=== PATIENT | female | born 1985 | race Caucasian/White ===

== ENCOUNTER 2021-05-08 23:35 | Emergency (ER) | payer SELFPAY ==
[2021-05-09 01:52] LABS: BASOPHILS # (AUTO) 0.1 10^3/uL (0.0-0.1); EOSINOPHILS # (AUTO) 0.2 10^3/uL (0.0-0.7); EOSINOPHILS % (AUTO) 2.5 %; HCT - HEMATOCRIT 38.8 % (37.0-47.0); HGB - HEMOGLOBIN 12.8 g/dL (12.0-16.0); LYMPHOCYTES # (AUTO) 2.3 10^3/uL (1.5-3.5); LYMPHOCYTES % (AUTO) 29.6 %; MEAN CORPUSCULAR HEMOGLOBIN 30.7 pg (27.0-31.0); MEAN PLATELET VOLUME 9.1 fL (7.9-10.8); MONOCYTES # (AUTO) 0.5 10^3/uL (0.0-1.0); MONOCYTES % (AUTO) 7.1 %; NEUTROPHILS # (AUTO) 4.6 10^3/uL (1.5-6.6); NEUTROPHILS % (AUTO) 59.7 %; PLT - PLATELET COUNT 291 10^3/uL (130-450); RED BLOOD COUNT 4.17 10^6/uL (4.20-5.40); RED CELL DISTRIBUTION WIDTH 11.9 % (12.0-15.0); WHITE BLOOD COUNT 7.6 x10^3/uL (4.8-10.8)
[2021-05-09 02:04] LABS: ALBUMIN 4.6 g/dL (3.2-5.5); ALBUMIN/GLOBULIN RATIO 1.6 (1.0-2.2); BILIRUBIN,TOTAL 0.5 mg/dL (0.2-1.0); CALCIUM 9.5 mg/dL (8.5-10.3); CREATININE 0.8 mg/dL (0.4-1.0); POTASSIUM 3.7 mmol/L (3.5-5.0); TOTAL PROTEIN 7.4 g/dL (6.7-8.2)
[2021-05-09 02:29] LABS: BILIRUBIN,URINE NEGATIVE (NEGATIVE); CLARITY,URINE CLEAR (CLEAR); GLUCOSE, URINE (UA) NEGATIVE (NEGATIVE); KETONES,URINE (UA) NEGATIVE (NEGATIVE); LEUKOCYTE ESTERASE, URINE NEGATIVE (NEGATIVE); NITRITE,URINE NEGATIVE (NEGATIVE); OCCULT BLOOD,URINE NEGATIVE (NEGATIVE); PH,URINE 5.5 PH (5.0-7.5); PROTEIN,URINE NEGATIVE (NEGATIVE); UROBILINOGEN,URINE 0.2 (NORMAL) E.U./dL (NORMAL)
--- NOTE | 2021-05-09 03:23 | ED Physician Documentation ---
PD HPI ABD PAIN - Stated complaint Stated Complaint: BACK/ABD PX - Chief complaint Chief Complaint: Back Pain - History obtained from History obtained from: Patient - Additional information Additional information: The patient is a 36-year-old female presenting to the emergency department with abdominal pain. Endorses for abdominal pain ongoing for the last several months. Reports it is worse with food intake. States that the pain wraps around her back and into her stomach. Endorses for some nausea but no vomiting. Denies diarrhea or constipation associated with her pain. Denies any previous abdominal surgeries. Comes in today because of persistent pain. Was also seen at a local area walk-in clinic approximately 1 month ago for similar symptoms. Reports an endoscopy that was performed in childhood but has not had one done in several years. Denies fever, chills, chest pain, shortness of breath, dysuria, vaginal discharge, new rash, new weakness/numbness/tingling in any extremity. Review of Systems Ten Systems: 10 systems reviewed and negative Constitutional: denies: Fever Eyes: denies: Loss of vision Ears: denies: Loss of hearing Nose: denies: Rhinorrhea / runny nose Throat: denies: Dental pain / toothache Cardiac: denies: Chest pain / pressure Respiratory: denies: Dyspnea GI: reports: Abdominal Pain, Nausea : denies: Dysuria Skin: denies: Rash Neurologic: denies: Generalized weakness PD PAST MEDICAL HISTORY - Past Medical History Past Medical History: Yes Cardiovascular: None Respiratory: None Neuro: None Endocrine/Autoimmune: HyPOthyroidism GI: None STUNT WOMAN: None : None HEENT: None Psych: None Musculoskeletal: None Derm: None - Past Surgical History Past Surgical History: Yes General: Appendectomy - Present Medications Home Medications: Ambulatory Orders Medication Instructions Recorded Confirmed Dicyclomine [Bentyl] 10 mg PO ONCE #30 cap 05/09/21 Levothyroxine [Synthroid] 100 mcg PO QDAC 05/09/21 05/09/21 Omeprazole 40 mg PO DAILY #30 cap 05/09/21 Ondansetron Odt [Zofran Odt] 4 mg TL Q6H PRN #10 tablet 05/09/21 - Allergies Allergies/Adverse Reactions: Allergies Allergy/AdvReac Type Severity Reaction Status Date / Time No Known Drug Allergies Allergy Verified 05/08/21 23:59 - Social History Does the pt smoke?: No Smoking Status: Never smoker Does the pt drink ETOH?: No Does the pt have substance abuse?: No - Immunizations Immunizations are current?: Yes - POLST Patient has POLST: No PD ED PE NORMAL - Vitals Vital signs reviewed: Yes - General General: Alert and oriented X 3 - HEENT HEENT: Atraumatic - Neck Neck: Supple, no meningeal sign - Cardiac Cardiac: RRR - Respiratory Respiratory: No respiratory distress - Abdomen Abdomen: Normal bowel sounds, Soft, Non tender, Non distended, No organomegaly - Female Female : Deferred - Rectal Rectal: Deferred - Back Back: No CVA TTP - Derm Derm: Normal color - Extremities Extremities: No deformity - Neuro Neuro: Alert and oriented X 3, No motor deficit, No sensory deficit, Normal speech, Other - Psych Psych: Normal mood Results - Vitals Vitals: Vital Signs - 24 hr 05/08/21 05/09/21 05/09/21 23:56 01:18 02:45 Temperature 36.8 C 36.6 C Heart Rate 65 68 Respiratory 16 15 15 Rate Blood Pressure 116/78 107/83 H O2 Saturation 100 98 Oxygen O2 Source Room air - Labs Labs: Laboratory Tests 05/09/21 05/09/21 05/09/21 01:47 01:47 02:20 WBC 7.6 RBC 4.17 L Hgb 12.8 Hct 38.8 MCV 93.0 MCH 30.7 MCHC 33.0 RDW 11.9 L Plt Count 291 MPV 9.1 Neut # (Auto) 4.6 Lymph # (Auto) 2.3 [place] # (Auto) 0.5 Eos # (Auto) 0.2 Baso # (Auto) 0.1 Absolute Nucleated RBC 0.00 Nucleated RBC % 0.0 Sodium 136 Potassium 3.7 Chloride 101 Carbon Dioxide 25 Anion Gap 10.0 BUN 16 Creatinine 0.8 Estimated GFR (MDRD) 82 L Glucose 104 H Calcium 9.5 Total Bilirubin 0.5 AST 15 ALT 17 Alkaline Phosphatase 73 Total Protein 7.4 Albumin 4.6 Globulin 2.8 Albumin/Globulin Ratio 1.6 Lipase 38 Urine Color YELLOW Urine Clarity CLEAR Urine pH 5.5 Ur Specific [place] 1.015 Urine Protein NEGATIVE Urine Glucose (UA) NEGATIVE Urine Ketones NEGATIVE Urine Occult Blood NEGATIVE Urine Nitrite NEGATIVE Urine Bilirubin NEGATIVE Urine Urobilinogen 0.2 (NORMAL) Ur Leukocyte Esterase NEGATIVE Ur Microscopic Review NOT INDICATED Urine Culture Comments NOT INDICATED PD MEDICAL DECISION MAKING - ED course Complexity details: re-evaluated patient, d/w patient ED course: Patient is 36-year-old female presenting to the emergency department with persistent abdominal pain made worse with food times several months. Afebrile, hemodynamically stable on arrival to the emergency department. Physical exam re assuring and that patient did not have any focal tenderness, guarding, rebound, rigidity and her abdominal exam was overall benign. Labs obtained were negative for indications of inflammation, severe electrolyte abnormality or urinary tract infection. Ultrasonography of the gallbladder was benign. Patient was offered medication for symptomatic management which she declined. At this time I orlando nuñez the most prominent ongoing differential diagnosis for this patient would include gastritis, peptic ulcer disease, irritable bowel syndrome. I will discharge at this time with some medications to help with symptomatic management including a course of Protonix, Bentyl and Zofran for use as needed. I encouraged the patient to follow-up with primary care, for possible referral to GI in the near future. Otherwise clear return precautions and follow-up instructions were given prior to discharge. Departure - Departure Disposition: 01 Home, Self Care Condition: Good Instructions: ED Abdominal Pain Female Non-Specific Abdominal Pain Prescriptions: Dicyclomine [Bentyl] 10 mg PO ONCE #30 cap Omeprazole 40 mg PO DAILY #30 cap Ondansetron Odt [Zofran Odt] 4 mg TL Q6H PRN #10 tablet PRN Reason: Nausea / Vomiting Comments: Thank you for allowing us to care for you today at [facility]. All of the testing performed in the emergency department today including your blood work, urine analysis and the ultrasound of your gallbladder were all very reassuring. I do not detect any life-threatening cause for your symptoms. It is however very important that you follow-up with your primary care doctor concerning these issues. I believe he benefit from eventual referral to a product handler for your persistent abdominal pain. In the meantime I would like you to begin some medications including a daily antiacid medication. It is very important however that when taking your medications in the morning that you take your thyroid supplement first and wait at least 60 to 90 minutes after you have taken your thyroid medication before you take your antiacid pill. If it anytime you have any new or worsening symptoms please not hesitate to return to the emergency department.
[2021-05-09 03:36] VITALS: BP 110/72
--- NOTE | 2021-05-09 07:39 | Ultrasound Report ---
PROCEDURE: Abdomen Limited INDICATIONS: Evalute gallbladder pls n ty TECHNIQUE: Real-time focused scanning was performed of the abdomen, with image documentation. COMPARISON: None FINDINGS: Liver is normal in size. Liver has increased echogenicity. No focal hepatic mass lesions. No intrahep atic biliary tree dilatation. Gallbladder sonographically normal. No gallstones. Gallbladder wall measures 1.3 mm. No pericholecyst ic fluid. No sonographic Gomez sign. Biliary tree is nondilated. Common bile duct measures 4.3 mm. The pancreas is sonographically normal. Body and tail of pancreas are scattered by bowel gas and mando ot be evaluated. IMPRESSION: 1. No sonographic evidence of cholelithiasis or cholecystitis. If there is continued clinical concern for cholecystitis, nuclear medicine HIDA scan should be considered for further evaluation. 2. Echogenic liver. Finding typically represents fatty infiltration, however the finding is nonspecif ic and other etiologies including hepatic cirrhosis can produce a similar appearance. Recommend corre lation with clinical and laboratory data. Reviewed by: Licha Mosher MD, PhD on 05/09/2021 7:38 AM PST Approved by: Licha Mosher MD, PhD on 05/09/2021 7:38 AM PST Station ID: [id number]
== END 2021-05-09 03:35 | disposition home or self-care (01) ==
LOC: ED 23:35
DX: R10.33 Periumbilical pain (principal)
CPT/HCPCS: 36415; 80053; 81001; 81003; 83690; 85025; 87086; 99282; 99284

== ENCOUNTER 2022-12-25 19:55 | Outpatient (CLI) | payer OTHER ==
--- NOTE | 2022-12-27 08:22 | XRAY Report ---
PROCEDURE: Toe(s) LT INDICATIONS: UNSPECIFIED INJURY OF LEFT FOOT. INITIAL ENCOUNTER TECHNIQUE: 2 views of the fifth toe(s) acquired. COMPARISON: None. FINDINGS: Bones: There is an oblique fracture of the fifth proximal phalanx without significant displacement. No suspicious bony lesions. Soft tissues: No suspicious soft tissue densities. IMPRESSION: Nondisplaced oblique fracture of the fifth proximal phalanx. Reviewed by: Melissa Navarro MD on 12/27/2022 8:21 AM PDT Approved by: Melissa Navaror MD on 12/27/2022 8:21 AM PDT Station ID: [id number]
== END 2022-12-25 19:56 | disposition home or self-care (01) ==
LOC: DI 19:55
PROVIDERS: ATTEND Nurse Practitioner
DX: S92.515A Nondisplaced fracture of proximal phalanx of left lesser toe(s), initial encounter for closed fracture (principal)
CPT/HCPCS: 73660

== ENCOUNTER 2023-01-02 10:30 | Outpatient (CLI) | payer OTHER ==
--- NOTE | 2023-01-02 13:56 | XRAY Report ---
PROCEDURE: Toe(s) LT INDICATIONS: LEFT 5TH TOE FRACTURE TECHNIQUE: 3 views of the fifth toe(s) acquired. COMPARISON: 12/25/2002 FINDINGS: Bones: Unchanged oblique fracture through the fifth proximal phalanx. Soft tissues: No suspicious soft tissue densities. IMPRESSION: Unchanged oblique fracture through the shaft of the fifth proximal phalanx. Reviewed by: Ollie Stover on 01/02/2023 1:55 PM PDT Approved by: Ollie Stover on 01/02/2023 1:55 PM PDT Station ID: [id number]
== END 2023-01-02 23:59 | disposition home or self-care (01) ==
LOC: DI.WOS 10:30
PROVIDERS: ATTEND Orthopaedic Surgery
DX: S92.512D Displaced fracture of proximal phalanx of left lesser toe(s), subsequent encounter for fracture with routine healing (principal)

== ENCOUNTER 2024-08-03 11:37 | Inpatient (IN) ==
[2024-08-03 12:05] LABS: RUPTURE OF MEMBRANES PLUS POSITIVE (NEGATIVE)
[2024-08-03] MEDS ORDERED: NIFEdipine 10 MG CAPSULE PO PRN (12:21)
[2024-08-03] MEDS ORDERED: miSOPROStoL 200 MCG TABLET PR PRN (12:21)
[2024-08-03] MEDS ORDERED: METHYLERGONOVINE 0.2 MG/ML VIAL IM PRN (12:21)
[2024-08-03] MEDS ORDERED: TERBUTALINE 1 MG/ML VIAL SUBQ PRN (12:21)
[2024-08-03] MEDS ORDERED: hydrALAZINE INJ 20 MG/ML VIAL IVP PRN (12:21)
[2024-08-03] MEDS ORDERED: lidocaine 1% 20 ML MDV ID PRN (12:21)
[2024-08-03] MEDS ORDERED: TRANEXAMIC ACID IN NACL 1,000 MG/100 ML BAG IV PRN (12:21)
[2024-08-03] MEDS ORDERED: OXYTOCIN 10 UNIT/ML VIAL IM PRN (12:21)
[2024-08-03] MEDS ORDERED: miSOPROStoL 200 MCG TABLET BC PRN (12:21)
[2024-08-03] MEDS ORDERED: fentaNYL 100 MCG/2 ML VIAL IVP PRN (12:21)
[2024-08-03] MEDS ORDERED: SODIUM CHLORIDE FLUSH 0.9% 10 ML SYRINGE IVP PRN (12:21)
[2024-08-03] MEDS ORDERED: OXYTOCIN/SODIUM CHLORIDE 500 ML IV PRN (12:21)
[2024-08-03] MEDS ORDERED: LABETALOL 20 MG/4 ML SYRINGE IVP PRN ×3 (12:21)
--- NOTE | 2024-08-03 12:41 | HISTORY & PHYSICAL EXAMINATION ---
Admit History Smoking Status: Never smoker Other Maternal History Other Maternal History: Patient is a 39-year-old G3, P2 at 38 weeks 4 days gestation presented today for leaking of fluid. She receives care at [facility]. She says been leaking for approximately 2 weeks, but this morning around 0310 she noticed a change in discharge with pinkish. ROM plus today was positive. She has intermittent contractions, worse at night, but does feel them occasionally during the day. She has good movement. No ZAMBRANO/BV or RUQP. No vaginal bleeding. Denies nausea and vomiting. Denies urinary urgency or dysuria. All other symptoms reviewed and were negative except per HPI. Course Records pending Per patient, only hypothyroidism managed with levothyroxine. Third , no complications. PMH Hypothyroidism PSH Open appendectomy Shoulder lipoma removal OB History Medications Levothyroixine HPI Current : Vital Signs Temperature 36.6 C 08/03/24 11:45 Respiratory Rate 16 08/03/24 11:45 Meds/Allgy Home Medications Ambulatory Orders Medication Instructions Recorded Confirmed dicyclomine 10 mg capsule 10 mg PO ONCE #30 caps 05/09/21 levothyroxine 100 mcg tablet 100 mcg PO QDAC 05/09/21 05/09/21 omeprazole 40 mg capsule,delayed 40 mg PO DAILY #30 caps 05/09/21 release ondansetron 4 mg disintegrating 4 mg translingual Q6H PRN Nausea / 05/09/21 tablet Vomiting #10 tabs levothyroxine 150 mcg tablet mcg PO 06/18/24 06/18/24 Allergies Allergies Allergy/AdvReac Type Severity Reaction Status Date / Time No Known Drug Allergies Allergy Verified 06/18/24 10:54 PFSH Active Problems All Active Problems (Updated 08/03/24 @ 12:38 by Rod Chavez MD) Hypothyroidism (Acute) 38 weeks gestation of (Acute) Rupture of membranes with clear amniotic fluid (Acute) Surgical History Surgical History (Updated 08/03/24 @ 12:35 by Rod Chavez MD) S/P excision of lipoma History of appendectomy Social History Social History Smoking Status: Never smoker Do you dip or chew tobacco?: No Do you vape?: No History of Abuse: No POLST Patient has POLST: No Review of Systems Status of ROS: 10 or more systems reviewed and unremarkable except as noted in history and below Physical Abdominal Exam Vital Signs: Temp Resp 36.6 C 16 08/03/24 11:45 08/03/24 11:45 Other Notes Labor Progress Note/Additional Text: General: Alert, oriented, no acute distress Head: Normal cephalic atraumatic Eyes: PERRLA, extraocular motions intact. Respiratory: Normal rate of respiration. No accessory muscle use, normal respiratory effort. Cardiovascular: Regular rate and rhythm Abdomen: Gravid, nontender, nondistended Extremities: Normal range of motion Neuro: Oriented x3. Normal movements Psych: Appropriate mood and affect. Normal judgment and insight SVE: FHT: 145 BPM baseline, moderate variability, accelerations present, no decelerations. Reactive NST [place]: Irregular Bedside ultrasound: Cephalic presentation Plan for Labor Plan For Labor I expect patient to be DC'd or transferred within 96 hours.: Yes Conclusion/Plan Problem List (1) Rupture of membranes with clear amniotic fluid: Plan: Admit to L&D, admit labs, epidural at patient's request. Will augment with oxytocin for regular contractions. Anticipate . (2) 38 weeks gestation of : Plan: Records requested from [facility]. (3) Hypothyroidism: Plan: Can continue home levothyroxine dose Qualifiers: Hypothyroidism type: acquired Qualified Code(s): E03.9 - Hypothyroidism, unspecified Lab Results 08/03/24 12:44
[2024-08-03 13:00] LABS: BASOPHILS # (AUTO) 0.1 10^3/uL (0.0-0.1); BASOPHILS % (AUTO) 0.7 %; EOSINOPHILS # (AUTO) 0.1 10^3/uL (0.0-0.7); HCT - HEMATOCRIT 36.6 % (37.0-47.0); LYMPHOCYTES # (AUTO) 1.9 10^3/uL (1.5-3.5); LYMPHOCYTES % (AUTO) 19.2 %; MEAN CORPUSCULAR HEMOGLOBIN 31.7 pg (27.0-31.0); MEAN CORPUSCULAR HGB CONC 32.8 g/dL (32.0-36.0); MEAN CORPUSCULAR VOLUME 96.6 fL (81.0-99.0); MEAN PLATELET VOLUME 9.6 fL (7.9-10.8); MONOCYTES # (AUTO) 0.9 10^3/uL (0.0-1.0); MONOCYTES % (AUTO) 9.2 %; NEUTROPHILS # (AUTO) 6.8 10^3/uL (1.5-6.6); NEUTROPHILS % (AUTO) 68.9 %; PLT - PLATELET COUNT 244 10^3/uL (130-450); RED BLOOD COUNT 3.79 10^6/uL (4.20-5.40); RED CELL DISTRIBUTION WIDTH 13.1 % (12.0-15.0); WHITE BLOOD COUNT 9.9 x10^3/uL (4.8-10.8)
[2024-08-03] MEDS ORDERED: SODIUM CHLORIDE FLUSH 0.9% 10 ML SYRINGE IVP SCH (13:00)
[2024-08-03] MEDS: OXYTOCIN/SODIUM CHLORIDE 500 ML IV SCH (13:42)
[2024-08-03] MEDS: LACTATED RINGERS 1,000 ML IV PRN (13:42)
[2024-08-03] MEDS ORDERED: LIDOCAINE 2%-EPI 1:100000 20 ML MDV ONE ×2 (19:01→21:49)
[2024-08-03] MEDS ORDERED: ROPIVACAINE 0.2% 200 MG/100 ML BAG EP ONE (19:01)
[2024-08-03] MEDS ORDERED: NALOXONE 0.4 MG/ML VIAL IVP PRN (19:58)
[2024-08-03] MEDS ORDERED: ROPIVACAINE 0.2% 200 MG/100 ML BAG EP PRN (19:58)
--- NOTE | 2024-08-03 19:58 | ANESTHESIA PROCEDURE NOTE ---
Pre-Anesthesia VS, & Labs Diagnosis Surgical Diagnosis:: Active labor Procedure Procedure: Vaginal delivery Vitals Vital Signs: Temp Pulse Resp BP Pulse Ox 36.5 C 108 H 17 129/86 96 08/03/24 16:27 08/03/24 16:27 08/03/24 16:27 08/03/24 16:27 08/03/24 16:27 NPO NPO: Other (clear liquids during labor) Is Patient ?: Yes Lab Results Current Lab Results: Laboratory Tests 08/03/24 13:13: Blood Type Recheck O POSITIVE 08/03/24 12:44: WBC 9.9, RBC 3.79 L, Hgb 12.0, Hct 36.6 L, MCV 96.6, MCH 31.7 H, MCHC 32.8, RDW 13.1, Plt Count 244, MPV 9.6, Neut # (Auto) 6.8 H, Lymph # (Auto) 1.9, Lane # (Auto) 0.9, Eos # (Auto) 0.1, Baso # (Auto) 0.1, Absolute Nucleated RBC 0.00, Nucleated RBC % 0.0, Blood Type O POSITIVE, Antibody Screen NEGATIVE Lab results reviewed: Yes 08/03/24 12:44 Meds/Allgy Home Medications Ambulatory Orders Medication Instructions Recorded Confirmed omeprazole 40 mg capsule,delayed 40 mg PO DAILY #30 caps 05/09/21 08/03/24 release levothyroxine 150 mcg tablet 150 mcg PO ONCE hypothyroid 06/18/24 08/03/24 Allergies Allergies Allergy/AdvReac Type Severity Reaction Status Date / Time No Known Drug Allergies Allergy Verified 06/18/24 10:54 PFSH Active Problems All Active Problems Hypothyroidism (Acute) 38 weeks gestation of (Acute) Rupture of membranes with clear amniotic fluid (Acute) Surgical History Surgical History S/P excision of lipoma History of appendectomy Social History Social History Smoking Status: Never smoker Do you dip or chew tobacco?: No Do you vape?: No History of Abuse: No POLST Patient has POLST: No Anesthesia Exam (Expanded) Exam General: Alert, Oriented x3 and Cooperative Dental: WNL Mouth Openin Fingerbreadth Neck Mobility: Normal Mallampati classification: II Thyromental Distance: 4-6 cm Plan Plan Anesthesia Type: Epidural Consent for Procedure(s) Verified and Reviewed: Yes Code Status: Attempt Resuscitation ASA Classification ASA classification: 2-Mild systemic disease Is this case an emergency?: No
[2024-08-03] MEDS ORDERED: SODIUM CHLORIDE 0.9% 10 ML VIAL IVP ONE (21:49)
[2024-08-03] MEDS ORDERED: fentaNYL 100 MCG/2 ML VIAL ONE (21:49)
[2024-08-04] MEDS ORDERED: SODIUM CHLORIDE 0.9% 1,000 ML IY ONE (00:02)
[2024-08-04] MEDS ORDERED: SODIUM CHLORIDE 0.9% 1,000 ML ONE (00:02)
--- NOTE | 2024-08-04 00:02 | ANESTHESIA PROCEDURE NOTE ---
Anesthesia Epidural Template Other Comments Other Comments: Patient reports increased pain with contraction on her right side. She rates it 7/10. She is completely numb on her left side. Epidural catheter was pulled back 2cm and bolused with 5ml of 2% lidocaine with epi with 100mcg fentanyl and 13ml of PF NS. She reported some improvement and now rates it 5/10. I recommended replacing her epidural and she wishes to hold off for now. Will be available for replacement if she changes her mind.
[2024-08-04] MEDS: ePHEDrine 50 MG/ML VIAL IVP PRN (00:12)
[2024-08-04] MEDS: ONDANSETRON 4 MG/2 ML VIAL IVP PRN (00:14)
[2024-08-04] MEDS ORDERED: ONDANSETRON 4 MG/2 ML VIAL IVP PRN (03:12)
[2024-08-04] MEDS ORDERED: WITCH HAZEL/GLYCERIN 1 PAD TOP PRN (03:12)
[2024-08-04] MEDS ORDERED: SIMETHICONE CHEW 80 MG TABLET PO PRN (03:12)
[2024-08-04] MEDS ORDERED: CALCIUM CARBONATE CHEW 500 MG TABLET PO PRN (03:12)
--- NOTE | 2024-08-04 03:20 | DELIVERY NOTE ---
Delivery Note Labor Labor: positive Induced by oxytocin Infant Delivery Method Delivery Method: positive Spontaneous vaginal delivery Presentation Presentation: positive Vertex Nuchal Cord Nuchal Cord: positive None Amniotic Fluid Description Amniotic Fluid Description: positive Clear Laceration Laceration: positive 2nd degree Suture Suture Type: positive Vicryl Suture Size: positive 3-0 Delivery Outcome Delivery Outcome: positive Livebirth Cecil Cecil: positive Placed in direct skin contact with mother Cecil sex: positive Male Cord Cord: positive 3 vessels Placenta Placenta: positive Intact Estimated Blood Loss Estimated Blood Loss (in cc): 350 Post Delivery Events Post Delivery Events: positive No post delivery events Delivery Comments (Free Text/Narrative) Delivery Comments (Free Text/Narrative): Preoperative Diagnoses: Prelabor rupture of membranes 38 weeks gestation Hypothyroidism Postoperative Diagnoses: Delivery of live rees Status post spontaneous vaginal delivery Elderly multigravida Findings: Live rees with Apgars of 8/9. Second-degree midline laceration repaired at time of procedure Summary: Patient was a patient of [facility] who presented at 38 weeks gestation with prelabor rupture of membranes. She was 1 cm on admission and oxytocin was started for augmentation. She received an epidural for pain control. In the middle of her labor, she had a period of repetitive late and variable decelerations, and she received an amnioinfusion which rectify the problem. She then progressed quickly until complete and ready to push. Delivery Summary: Patient was placed in the dorsal lithotomy position. Upon maternal pushing the head was delivered atraumatically followed by the anterior shoulder, posterior shoulder, then the remainder of the 's body. A male was delivered with APGARS of 8 at 1 minute and 9 at 5 minutes. The infant was placed on its mother's chest . After the cord finished pulsating, the umbilical cord was clamped times two and cut. The placenta delivered intact with three vessel cord. Placenta was not sent to pathology. Thirty units of Pitocin were added to the IV fluid and allowed to run freely. Uterine massage was performed until uterus was deemed firm. Upon inspection the perineum, a small sign your midline laceration was noted. This was repaired with a running stitch of 3-0 Vicryl. Upon re-inspection the patient was hemostatic. Uterus again massaged and found to be firm. Needle and sponge counts were correct. Patient was stable and allowed to recover in L&D room. was stable and remained in room with mother. weight is pending at this time.
[2024-08-04] MEDS ORDERED: LACTATED RINGERS 1,000 ML IV SCH (04:00)
[2024-08-04] MEDS: LEVOTHYROXINE 75 MCG TABLET PO SCH (06:05)
[2024-08-04] MEDS: IBUPROFEN 600 MG TABLET PO SCH (08:00)
[2024-08-04] MEDS: ACETAMINOPHEN 500 MG TABLET PO SCH (08:00)
--- NOTE | 2024-08-04 08:42 | PROVIDER PROGRESS NOTE ---
Subjective Prog Note Date Prog Note Date: 08/04/24 Prog Note Time: 10:58 Subjective Subjective: Mackenzie complains of pain in her left upper chest/axilla region. Thinks that it may be from the way she was gripping the bed while pushing. Pain when she moves her arm and when it is palpated. Denies SOB. She reports she has ambulated to the bathroom, urinated without difficulty. Bleeding seems normal. She is baby, who is at bedside. Current Medications Current Medications Current Medications: Current Medications Generic Name Dose Route Start Last Admin Trade Name Freq PRN Reason Stop Dose Admin Acetaminophen 1,000 mg 08/04/24 06:00 08/04/24 08:00 Acetaminophen 500 Mg Tablet PO 1,000 mg Q8HR INGRID Administration Calcium Carbonate/Glycine 500 mg 08/04/24 03:12 Calcium Carbonate Chew 500 Mg Tablet PO TID PRN Heartburn Ephedrine Sulfate 5 mg 08/03/24 19:58 08/04/24 00:12 Ephedrine 50 Mg/Ml Vial IVP 5 mg Q5M PRN Administration For SBP<100;give until SBP>100 Fentanyl 50 mcg 08/03/24 12:21 Fentanyl 100 Mcg/2 Ml Vial IVP Q1H PRN Severe Pain (score 7-10) Hydralazine HCl 5 - 10 mg 08/03/24 12:21 Hydralazine Inj 20 Mg/Ml Vial IVP Q20M PRN SBP> or= 160 OR DBP> or= 110 Protocol Lactated Ringer's 500 mls @ 999 mls/hr 08/03/24 12:21 08/03/24 20:50 Lr IV 999 mls/hr PRN PRN Administration PER PHYSICIAN ORDER Oxytocin/Sodium Chloride 500 mls @ 999 mls/hr 08/03/24 12:21 Pitocin/Sodium Chloride IV PRN PRN POST- HEMORR PREVENTION Protocol 999 MILLIUNIT/MIN Tranexamic Acid 1,000 mg in 100 mls @ 600 mls/hr 08/03/24 12:21 Tranexamic 1,000 Mg/100ml-Nacl IV Q30M PRN EBL >1200mL and within 3hr Oxytocin/Sodium Chloride 500 mls @ 2 mls/hr 08/03/24 13:00 08/04/24 04:50 Pitocin/Sodium Chloride IV 0 milliunit/min TITR INGRID 0 mls/hr Titration Protocol 2 MILLIUNIT/MIN Ropivacaine 200 mg in 100 mls @ 0 mls/hr 08/03/24 19:58 Naropin 0.2% EP PRN PRN PAIN Protocol Per Protocol Lactated Ringer's 1,000 mls @ 100 mls/hr 08/04/24 04:00 Lr IV .Q10H INGRID Ibuprofen 600 mg 08/04/24 06:00 08/04/24 08:00 Ibuprofen 600 Mg Tablet PO 600 mg Q6HR INGRID Administration Labetalol HCl 20 - 80 mg 08/03/24 12:21 Labetalol 20 Mg/4 Ml Syringe IVP Q10M PRN SBP> or= 160 OR DBP> or= 110 Protocol Labetalol HCl 20 mg 08/03/24 12:21 Labetalol 20 Mg/4 Ml Syringe IVP .ONCE PRN SBP> or= 160 OR DBP> or= 110 Protocol Labetalol HCl 20 - 40 mg 08/03/24 12:21 Labetalol 20 Mg/4 Ml Syringe IVP Q10M PRN SBP> or= 160 OR DBP> or= 110 Protocol Levothyroxine Sodium 150 mcg 08/04/24 06:00 08/04/24 06:05 Levothyroxine 75 Mcg Tablet PO 150 mcg 0600 INGRID Administration Lidocaine HCl 20 ml 08/03/24 12:21 Lidocaine 1% 20 Ml Mdv ID 08/06/24 12:21 .ONCE PRN PERINEAL REPAIR Methylergonovine Maleate 0.2 mg 08/03/24 12:21 Methylergonovine 0.2 Mg/Ml Vial IM .ONCE PRN Hemorrhage Misoprostol 600 mcg 08/03/24 12:21 Misoprostol 200 Mcg Tablet BC .ONCE PRN Hemorrhage Misoprostol 800 mcg 08/03/24 12:21 Misoprostol 200 Mcg Tablet [place] .ONCE PRN Hemorrhage Naloxone HCl 0.1 mg 08/03/24 19:58 Naloxone 0.4 Mg/Ml Vial IVP Q2M PRN RR<8 Nifedipine 10 - 20 mg 08/03/24 12:21 Nifedipine 10 Mg Capsule PO Q20M PRN SBP> or= 160 OR DBP> or= 110 Protocol Ondansetron HCl 4 mg 08/03/24 19:58 08/04/24 00:14 Ondansetron 4 Mg/2 Ml Vial IVP 4 mg Q6HR PRN Administration Nausea / Vomiting Ondansetron HCl 4 mg 08/04/24 03:12 Ondansetron 4 Mg/2 Ml Vial IVP Q4HR PRN Nausea / Vomiting Oxytocin 10 unit 08/03/24 12:21 Oxytocin 10 Unit/Ml Vial IM .ONCE PRN Step One if no IV access. Simethicone 80 mg 08/04/24 03:12 Simethicone Chew 80 Mg Tablet PO TID PRN Gas Sodium Chloride 10 ml 08/03/24 12:21 Sodium Chloride Flush 0.9% 10 Ml Syringe IVP PRN PRN NEEDED PER PROVIDER ORDERS Sodium Chloride 10 ml 08/03/24 13:00 Sodium Chloride Flush 0.9% 10 Ml Syringe IVP Q8H INGRID Terbutaline Sulfate 0.25 mg 08/03/24 12:21 Terbutaline 1 Mg/Ml Vial SUBQ .ONCE PRN Tachystole Witch Aleena/Glycerin 1 pad 08/04/24 03:12 Witch Aleena/Glycerin 1 Pad TOP PRN PRN ITCHING Objective Vital Signs/Intake & Output Reviewed Vital Signs: Yes Vital Signs: Vital Signs x48h Temp Pulse Resp BP Pulse Ox 08/04/24 08:19 98.6 F 105 H 16 116/73 96 08/04/24 06:10 99.0 F 103 H 17 119/71 08/04/24 05:15 94 129/72 08/04/24 05:01 91 117/70 08/04/24 04:48 84 113/67 08/04/24 04:30 90 122/72 08/04/24 04:15 97 129/66 08/04/24 04:00 86 110/69 08/04/24 03:45 109 H 126/63 08/04/24 03:30 104 H 114/62 08/04/24 03:15 112 H 141/62 H 08/04/24 03:07 97.5 F L 112 H 18 115/65 100 Intake & Output: Intake & Output 08/01/24 08/02/24 08/03/24 08/04/24 23:59 23:59 23:59 23:59 Intake Total 508 / 508 Output Total 1225 / 1225 700 / 700 Balance -717 / -717 -700 / -700 Weight (kg) 194 lb Objective Comments/Other: Gen: NAD, resting in bed CV: Slightly tachycardic, regular rhythm, no significant murmur noted. Resp: CTAB, no crackles Abd: fundus firm, non tender Ext: no LE edema Lab Results 08/03/24 12:44 Other Labs: Lab Results x24hrs 08/03/24 08/03/24 08/03/24 Range/Units 13:13 12:44 11:55 WBC 9.9 (4.8-10.8) x10^3/uL RBC 3.79 L (4.20-5.40) 10^6/uL Hgb 12.0 (12.0-16.0) g/dL Hct 36.6 L (37.0-47.0) % MCV 96.6 (81.0-99.0) fL MCH 31.7 H (27.0-31.0) pg MCHC 32.8 (32.0-36.0) g/dL RDW 13.1 (12.0-15.0) % Plt Count 244 (130-450) 10^3/uL MPV 9.6 (7.9-10.8) fL Neut # (Auto) 6.8 H (1.5-6.6) 10^3/uL Lymph # (Auto) 1.9 (1.5-3.5) 10^3/uL [place] # (Auto) 0.9 (0.0-1.0) 10^3/uL Eos # (Auto) 0.1 (0.0-0.7) 10^3/uL Baso # (Auto) 0.1 (0.0-0.1) 10^3/uL Absolute Nucleated RBC 0.00 x10^3/uL Nucleated RBC % 0.0 /100WBC Membranes Rupture POSITIVE A (NEGATIVE) Blood Type O POSITIVE Blood Type Recheck O POSITIVE Antibody Screen NEGATIVE Assessment/Plan Problem List (1) care and examination of lactating mother: Impression: - Continue routine care. Anticipate discharge home tomorrow. (2) Hypothyroidism: Impression: - Continue home dose of levothyorixine. Qualifiers: Hypothyroidism type: acquired Qualified Code(s): E03.9 - Hypothyroidism, unspecified
[2024-08-04] MEDS ORDERED: DOCUSATE SODIUM 250 MG CAPSULE PO ONE (10:50)
[2024-08-04] MEDS: DOCUSATE SODIUM 250 MG CAPSULE PO SCH (10:52)
[2024-08-05 04:45] VITALS: O2SAT 98
[2024-08-05 09:32] VITALS: BP 112/77; TEMP 98.4
--- NOTE | 2024-08-05 10:30 | Discharge Summary ---
Discharge Summary Admit Date: 08/03/24 Discharge Date: 08/05/24 Discharging Provider: Roya Lord MD [facility] History of Present Illness: Admission Diagnosis: - SIUP at 38w4d - Hep C Ab positive - Hypothyroidism Discharge Diagnosis: - Same, delivered Procedures: , repair of 2nd degree laceration Hospital Course: Mackenzie is a 39 yo who presented at 38w4d in OM at 1cm. Her labor was augmented with pitocin. She had an uncomplicated with repair of 2nd degree laceration, with an EBL of 350cc. Her course was uncomplicated. Condition on Discharge: SUBJECTIVE: day 1 She feels well and would like to go home. Reports left shoulder pain that she was experiencing yesterday has resolved. Pain is well controlled with current medications. The baby is doing well. Baby is feeding via breast feeding. She is ambulating well, tolerating normal diet, urinating without difficulty. Lochia is reported as normal. Planning to use condoms for control. Would like to follow up at [facility] for care. OBJECTIVE: Vital signs reviewed GENERAL: NAD CHEST: non labored respirations ABD: soft, non tender, fundus firm EXT: no lower extremity edema; No evidence of DVT LAB & IMAGING STUDIES: See below PLAN: Plan for discharge home with follow up in clinic in 1 week - OK for virtual visit. Reviewed home care instructions and medications. Patient counseled regarding signs and symptoms of infection, excessive bleeding, vaginal rest and activity restrictions. Contraceptive plans to be formalized at visit, currently planning for condoms. Discussed that additional support is available in our clinic if needed. ALLERGIES Allergies Allergy/AdvReac Type Severity Reaction Status Date / Time No Known Drug Allergies Allergy Verified 06/18/24 10:54 MEDICATIONS Ambulatory Orders Medication Instructions Recorded Confirmed omeprazole 40 mg capsule,delayed 40 mg PO DAILY #30 caps 05/09/21 08/03/24 release levothyroxine 150 mcg tablet 150 mcg PO ONCE hypothyroid 06/18/24 08/03/24 LABS 08/03/24 12:44 Discharge Plan Discharge Patient Disposition: Home, Self Care Prescriptions: Continued omeprazole 40 MG capsule,delayed release(DR/EC) 40 mg PO DAILY Qty: 30 0RF levothyroxine 150 mcg tablet 150 mcg PO ONCE Patient Comments: take 1 tablet by mouth once daily Print Language: Sudanese Patient Instructions: Vaginal After, Childbirth Breast Care, Depression , Change Expect Parents Follow-up Care: Rod Chavez MD [Provider Admit Priv/Credential] - ( 1 week visit) KEATON JEFFRIES MD [Primary Care Provider] -
--- NOTE | 2024-08-05 11:44 | Labor Flowsheet ---
Labor Flowsheet Datetime Report Generated by CPN: 08/05/2024 11:44 Datetime: 08/05/2024 08:45 VITAL SIGNS NBP Sys/Jossy/Mean (mmHg): 112 : 77 : 83 Pulse: 82 LaborFlag: Labor Datetime: 08/05/2024 00:14 SpO2 (%): 99 Datetime: 08/04/2024 04:45 Epidural Procedure Other: Cath Removed; Cath Intact Datetime: 08/04/2024 03:01 Comments: placenta delivery Medication Comments: pitocin bolus going per md Datetime: 08/04/2024 02:54 Contraction Comments: IUPC removed Datetime: 08/04/2024 02:45 UTERINE ACTIVITY Monitor Mode: Internal Frequency (min): 1-3 Quality: Strong Duration (sec): 60-80 Pattern: Normal: <= 5 Contractions in 10 Minutes Resting Tone (Palpate): Relaxed MONTEVIDEO UNITS (Computed) Contractions in Ten Minutes: 4 IUPC Average Intensity: 64 IUPC Average Resting Tone: 20 [place] Units (mmHg): 176 ASSESSMENT A Monitor Mode: Doppler FHR Baseline Rate : 130 Variability: Moderate 6-25 bpm Accelerations: 15X15 Decelerations: Variable Datetime: 08/04/2024 02:35 Communication Comments: ellington removed Datetime: 08/04/2024 02:33 Provider Notified (Name): Dr. Scott Datetime: 08/04/2024 02:30 COMMUNICATION Communication: Provider at Bedside Datetime: 08/04/2024 02:19 VAGINAL EXAM Dilatation (cm): 9.5 Effacement (%): 80 Station: 0 Exam by: Savannah CNM Datetime: 08/04/2024 00:21 Anesthesia Comments: epidural off Datetime: 08/04/2024 00:17 Anesthesia Level Check: T7 Datetime: 08/04/2024 00:14 MEDICATIONS Pitocin (milliunits): Decreased to @ 3 Datetime: 08/04/2024 00:12 Patient Care Comments: Amnioinfusion started Datetime: 08/03/2024 23:54 Notification Reason: Status Update; Uterine Activity Datetime: 08/03/2024 23:12 Patient Position/Activity: Right Lateral Datetime: 08/03/2024 22:00 Temperature (C): 37.0 Temperature Route: Oral Datetime: 08/03/2024 20:30 I/O Interventions: [place] Cath Inserted Datetime: 08/03/2024 20:29 Pitocin Checklist: At Least 1 Acceleration of 15 bpm x 15 Seconds in 30 Minutes or Adequate Variabi lity; No More than 1 Late Deceleration Occurred in Past 30 Minutes; No More than 2 Variable Decelerat ions > 60 Seconds in Duration and decreasing >60 bpm in 30 minutes; No More than 5 Uterine Contractio ns in 10 Minutes for any 20 Minute Interval; Uterus Palpates Soft between Contractions; IUPC Resting Tone less than 25 mmHg Monitor Interventions for FHR: Ultrasound Adjusted Datetime: 08/03/2024 20:08 Stage of : Labor Datetime: 08/03/2024 20:00 Vaginal Bleeding: Normal Show Cervix, Consistency: Moderate Vaginal Exam Comments: Cervical exam per provider request Datetime: 08/03/2024 19:30 Category: Category I Oxygen Method: Room Air Datetime: 08/03/2024 19:24 Pain Assessment Comments: less pain. more manageable Datetime: 08/03/2024 19:18 Epidural Procedure: Completed Datetime: 08/03/2024 19:03 PROCEDURE TIME OUT Procedure Type: 1903 Procedure Verify: Correct Patient Identity; Correct Side and Site are Marked; Accurate Procedure Co nsent Form; Agreement on Procedure to be Done; Correct Patient Position; Safety Precautions Based on Patient History or Medication Use ANESTHESIA Anesthesia Plans: Epidural Datetime: 08/03/2024 19:00 Resting Tone IUP (mmHg): 20 Intensity IUP (mmHg): 75 [place] Units (mmHg): 335 Datetime: 08/03/2024 18:45 Monitor Interventions for UA: IUPC Inserted Membranes Ruptured Date/Time: 08/03/2024 03:00 Membranes Rupture Method: Spontaneous Amniotic Fluid Color: Clear Datetime: 08/03/2024 18:14 Cervix, Position: Midposition Datetime: 08/03/2024 16:18 Respirations: 17 MATERNAL ASSESSMENT Level of Consciousness: Alert Headache: Denies Nausea/Vomiting: Denies RUQ Epigastric Pain: Denies Datetime: 08/03/2024 16:15 Pain Presence: Intermittent Pain Type: Cramping; Contraction Pain Location: Abdomen Pain Relief Measures: Comfort Measures Pain Coping: Breathing Through Contractions Comfort Measures: Breathing/Relaxation; Coaching; Family Support Datetime: 08/03/2024 15:15 FHR Baseline Changes: No Baseline Change Datetime: 08/03/2024 15:00 PAIN Pain Scale: 3 Datetime: 08/03/2024 13:59 Membrane Comments: pt believes that her water broke on Saturday, but stated she tested negative for rupture at that time. Denies odor from fluid or discharge. Denies previous fever. Breath Sounds, Left: Clear and Equal Breath Sounds, Right: Clear and Equal PATIENT CARE IV/Blood Work: IV Started TEACHING Instructional Method: Patient Instructed; Family/Support Person Instructed Plan of Care: Plan of Care Discussed; Induction Unit Routine: [place] to Room; Call [place]; Bed; Visiting Policy; Waiting Areas; Infant Security; Phon e/Cell Phone Use; Photography; Unit Personnel; Handwashing; Flu/Illness Precautions; Monitoring ; IV Pumps; Safety/Fall Risk Prevention; Diet/Nutrition Services; Bathroom Privileges Labor/Induction: Labor Stages; Augmentation; Induction Medications: Pitocin Related: Common Discomforts of ; Maternal Physical Changes; Maternal Emotional C hanges; Nutrition; Hydration; Activity and Rest
== END 2024-08-05 11:30 | disposition home or self-care (01) | DRG 807 ==
LOC: WFO 11:37 → FBP 11:41
PROVIDERS: ADMIT Obstetrics & Gynecology; ATTEND Obstetrics & Gynecology
DX: E03.9 Hypothyroidism, unspecified; Z3A.38 38 weeks gestation of pregnancy; O42.02 Full-term premature rupture of membranes, onset of labor within 24 hours of rupture; Z37.0 Single live birth; O99.284 Endocrine, nutritional and metabolic diseases complicating childbirth; O76 Abnormality in fetal heart rate and rhythm complicating labor and delivery; O70.1 Second degree perineal laceration during delivery